=== PATIENT | female | born 1995 | race Two or more races ===

== ENCOUNTER 2021-10-28 04:57 | Emergency (ER) | payer OTHER, SELFPAY ==
[2021-10-28 05:09] VITALS: BP 156/100; PULSE 100; RESP 16; TEMP 36.6; O2SAT 97; BMI 43.9
[2021-10-28 05:15] VITALS: O2SAT 96
[2021-10-28 05:16] VITALS: BP 141/91; PULSE 108; RESP 18; TEMP 36.9; O2SAT 97
[2021-10-28 05:30] LABS: COVID-19 Test Negative (Negative)
--- NOTE | 2021-10-28 05:53 | ED.URI ---
HPI - URI/Sore Throat General Chief Complaint: Upper Respiratory Symptoms Stated Complaint: sore throat, congestion, ear pain Time Seen by Provider: 10/28/21 05:35 History of Present Illness HPI Narrative: Patient is a 26-year-old female presents today with having 2 day history of sore throat congestion upper respiratory symptoms mild coughing. Patient from home. Vaccinated for COVID x2. Did not have the booster. No nausea no vomiting no systemic complaints. Patient denies any travel history. Does not think she is . No neck pain. Related Data Previous Rx's Medication Instructions Recorded azithromycin 250 mg tablet See Rx Instructions PO .COMPLEX 10/28/21 upper resp infection #6 tabs cetirizine 10 mg tablet (Zyrtec) 10 mg PO DAILY #7 tabs 10/28/21 Allergies Allergy/AdvReac Type Severity Reaction Status Date / Time No Known Allergies Allergy Verified 10/28/21 05:35 Review of Systems Review of Systems: Positive congestion positive sore throat positive generalized malaise Yes all other systems are reviewed and are negative [facility] Past Medical History Attestation statement: The following information was validated with the patient. Social History Social History Advance Directives: No Advance Directives Information Provided: No Physical Exam Vital Signs: Vital Signs: Last Vital Signs Temp 98.5 F 10/28/21 05:16 Pulse 108 H 10/28/21 05:16 Resp 18 10/28/21 05:16 BP 141/91 H 10/28/21 05:16 Pulse Ox 97 10/28/21 05:16 O2 Del Method 10/28/21 05:16 BMI result Body Mass Index 43.9 Appearance: Alert. Oriented X3. No acute distress. Eyes: Pupils equal, round and reactive to light. ENT: Pharynx normal. Neck: Normal inspection. Neck supple. No lymph nodes noted. No crepitus CVS: Normal heart rate and rhythm. Pulses normal. Normal S1 and S2 Respiratory: No respiratory distress. Breath sounds normal. No Wheezing. No rales Abdomen: Soft and nontender. No rigidity. No distention. good BS x4 Skin: Skin warm and dry. Normal skin color. Normal skin turgor. Extremities: No lower extremity edema. Neurovascular intact to all extremities. No Lacerations. No Rash Neuro: Oriented X 3. No motor deficit. No sensory deficit. Moving all extermities. No slurred speech MDM - URI/Sore Throat MDM Narrative Medical decision making narrative: COVID test is negative. Will get strep test. More likely patient had upper respiratory viral syndrome. Currently in stable condition O2 sat is 97 on room air. in no distress. Patient's strep was negative. Will start patient on a Z-David and Zyrtec. Follow-up on an outpatient basis. Medical Records Attestation: I reviewed the patient's medical records. Lab Data Attestation: I reviewed the patient's lab results. Labs: Lab Results 10/28/21 10/28/21 Range/Units 05:07 05:48 COVID-19 ([place]) Negative (Negative) COVID-19 Clin Com See Note S. pyogenes GrpA MARIO Negative (Negative) Discharge Plan Discharge Clinical Impression: Upper respiratory infection Patient Disposition: Home, Self-Care Instructions: Upper Respiratory Infection (ED) Prescriptions: New azithromycin 250 mg tablet See Rx Instructions .ROUTE .COMPLEX Qty: 6 0RF Rx Instructions: take 500 mg today (day 1), then 250 mg for 4 days (days 2-5) cetirizine [Zyrtec] 10 mg tablet 10 mg PO DAILY Qty: 7 0RF Referrals: Physician,None [Primary Care Provider] -
[2021-10-28 06:02] LABS: Strep A Nucleic Acid Negative (Negative)
== END 2021-10-28 06:42 | disposition home or self-care (01) ==
PROVIDERS: Emergency Provider Emergency Medicine Emergency Medical Services
DX: J06.9 Acute upper respiratory infection, unspecified (principal); Z20.822 Contact with and (suspected) exposure to COVID-19; J02.9 Acute pharyngitis, unspecified
CPT/HCPCS: 36415; 87635; 87651; 99283; 99284

== ENCOUNTER 2022-01-12 03:31 | Emergency (ER) | payer OTHER, SELFPAY ==
--- NOTE | ~2022-01-12 | CT_ITS ---
EXAMINATION: CT ANGIOGRAM OF THE CHEST WITH AND WITHOUT CONTRAST (CT PULMONARY ANGIOGRAM FOR PE) CLINICAL INFORMATION: Reason for Exam chest tightness, on oral control, recent tra COMPARISON: Chest radiograph from today TECHNIQUE: Prior to contrast administration, noncontrast localization images were obtained. Subsequently, multidetector volumetric imaging was performed from the thoracic inlet to below the diaphragms following the administration of 75 mL Omnipaque 350 intravenous contrast. No contrast reaction reported Sagittal, coronal, and MIP oblique sagittal reformatted images were obtained on the CT workstation, uploaded to PACS, and reviewed. This CT examination was performed using dose optimization techniques as appropriate, variously including the following: *Automated exposure control *Adjustment of mA and/or kV according to patient size (this includes techniques or standardized protocols for targeted exams where dose is matched to indication/reason for exam; i.e. extremities or head) *Use of iterative reconstruction technique Total exam dose-length product 490 mGy-cm FINDINGS: QUALITY OF STUDY/CONTRAST BOLUS: Satisfactory. PULMONARY ARTERIES: No central or segmental pulmonary emboli. THORACIC AORTA: No aneurysm or dissection. 2 vessel branching configuration of the arch. LUNG: No focal consolidation, nodules or masses. The central airways are patent. PLEURA: No pleural effusion or pneumothorax. MEDIASTINUM: Normal heart size. No pericardial effusion. No hilar or mediastinal lymphadenopathy. Residual thymic tissue noted. No evidence of septal bowing or right heart strain. CHEST WALL/AXILLA: No axillary or internal mammary lymphadenopathy. OSSEOUS STRUCTURES: No acute or suspicious osseous abnormality. UPPER ABDOMEN: Unremarkable. No reflux of contrast into the hepatic veins to suggest elevated right heart pressures. CT/CT angio chest PE protocol IMPRESSION: No pulmonary embolism or other acute intrathoracic abnormality. VTE: negative.
--- NOTE | ~2022-01-12 | XR_ITS ---
EXAMINATION: XR CHEST CLINICAL INFORMATION: Chest tightness/palpitations COMPARISON: None TECHNIQUE: 2 views of the chest were obtained. FINDINGS: The lungs are well expanded. There is no focal consolidation, edema, or effusion. No pneumothorax. The cardiomediastinal silhouette is within normal limits. No acute osseous abnormality. XR/XR chest 2V IMPRESSION: Clear lungs.
[2022-01-12 04:09] LABS: Hematocrit 39.8 % (37.0-47.0); Hemoglobin 13.5 g/dl (12.0-16.0); Mean Corpuscular HGB Conc 33.9 g/dl (31.0-35.0); Mean Corpuscular Volume 85.6 fL (80.0-98.0); Platelet Count 316 X10*3/uL (160-400); Red Blood Count 4.65 X10*6/uL (4.20-5.50); Red Cell Distribution Width 12.5 % (11.0-16.0); White Blood Count 11.6 X10*3/uL (4.8-10.8)
[2022-01-12 04:16] VITALS: BP 157/103; PULSE 122; RESP 19; TEMP 36.8; O2SAT 99; BMI 43.9
[2022-01-12 04:34] LABS: Alanine Aminotransferase 15 U/L (0-31); Albumin Level 4.1 g/dL (3.5-5.0); Alkaline Phosphatase 77 U/L (39-117); Anion Gap 17 (12-20); Aspartate Amino Transferase 19 U/L (5-31); Bilirubin Direct 0.2 mg/dL (0.0-0.5); Bilirubin Total 0.5 mg/dL (0.0-1.0); Blood Urea Nitrogen 14 mg/dL (9-16); Carbon Dioxide 19 mmol/L (22-29); Chloride 103 mmol/L (96-108); Estimated Glomerular Filt Rate > 60; Glucose Random 84 mg/dL (60-115); Lipase 25 U/L (8-78); Potassium 3.7 mmol/L (3.3-5.1); Sodium 135 mmol/L (135-145); Total Protein 7.9 g/dL (6.5-8.0)
--- NOTE | 2022-01-12 08:03 | ECG_ITS ---
Test Reason : chest discomfort/ cp Blood Pressure : / mmHG Vent. Rate : 108 BPM Atrial Rate : 108 BPM P-R Int : 132 ms QRS Dur : 082 ms QT Int : 338 ms P-R-T Axes : 072 078 039 degrees QTc Int : 452 ms Sinus tachycardia Otherwise normal ECG When compared with ECG of 12-JAN-2022 03:49, No significant change was found Referred By: Generic ED Physician Electronically Signed By:STACEY VANN MD
--- NOTE | 2022-01-12 09:34 | ED.CHESTPAIN ---
HPI - Chest Pain General Chief Complaint: Chest Pain Stated Complaint: Abd pain/Hip pain Time Seen by Provider: 01/12/22 09:14 Source: patient Mode of arrival: ambulatory Limitations: no limitations History of Present Illness HPI narrative: 26-year-old female with no significant past medical history put is currently on the control [facility] who recently traveled to [place] 2 weeks ago presenting to the ER with complaints of chest tightness with feeling like her heart is racing for the past 2 days that has been intermittent. She reports that the pain is not relieved with anything. She reports nothing exacerbates the pain. She denies any fevers, chills, dizziness, headaches, change in vision, jaw pain, paresthesias, dyspnea on exertion, orthopnea, cough, shortness of breath, nausea/vomiting, abdominal pain, back pain, dysuria, hematuria, abnormal vaginal discharge, lower extremity edema or calf tenderness, sick contacts, hypercoagulation disorder that she is aware of, recent surgery or any other symptoms complaints or concerns at this time. MD complaint: chest discomfort Onset (ago): day(s) (2) Timing of current episode: episodic Prior episodes: No Onset: during rest Pain location: substernal Pain radiation: none Severity: mild Quality: tightness Relieving factors: nothing Exacerbating factors: nothing Context: recent travel and other (On oral control) Treatment prior to arrival: none Risk Factors Coronary artery disease risk factors: none Thoracic aortic dissection risk factors: none Related Data Previous Rx's Medication Instructions Recorded azithromycin 250 mg tablet See Rx Instructions PO .COMPLEX 10/28/21 upper resp infection #6 tabs cetirizine 10 mg tablet (Zyrtec) 10 mg PO DAILY #7 tabs 10/28/21 hydroxyzine HCl 50 mg tablet 50 mg PO Q8H PRN anxiety #14 tabs 01/12/22 Allergies Allergy/AdvReac Type Severity Reaction Status Date / Time No Known Allergies Allergy Verified 10/28/21 05:35 Review of Systems Review of Systems: Constitutional : No Weight loss, No Fever, No Chills, No Night Sweats, No Fatigue, No Malaise ENT/Mouth : No Hearing loss, No Ear Pain, No Nasal Congestion, No Sinus Pain, No Hoarseness, No sore throat, No Rhinorrhea, No Swallowing Difficulty Eyes: No Eye Pain, No Swelling, No Redness, No Foreign Body, No Discharge, No Vision Changes Cardiovascular : + Chest Pain, + palpitations, No SOB, No Dyspnea on Exertion, No Orthopnea, No Edema Respiratory : No Cough, No Sputum, No Wheezing, No Smoke Exposure, No Dyspnea Gastrointestinal : No Nausea, No Vomiting, No Diarrhea, No Constipation, No abdominal Pain, No Hematochezia, No Melena Genitourinary : no irregular bleeding, No Dysuria, No Urinary Frequency, No Hematuria, No Urinary Incontinence, No Urgency, No Flank Pain, No Urinary Flow Changes, No Hesitancy Musculoskeletal : No joint pain, No Myalgias, No Joint Swelling Skin : No Skin Lesions, No rash Neuro : No Weakness, No Numbness, No Paresthesias, No Loss of Consciousness, No Dizziness, No Headache Psych : No Anxiety/Panic, No Depression, No SI/HI/AH/VH, No Social Issues, Heme/Lymph: No Bruising, No Bleeding,No Lymphadenopathy Endocrine : No Polyuria, No Polydipsia, No Temperature Intolerance Yes all other systems are reviewed and are negative [facility] Past Medical History Attestation statement: The following information was validated with the patient. Source: old records reviewed and nursing notes reviewed Social History Social History Advance Directives: No Physical Exam Vital Signs: Vital Signs: Last Vital Signs Temp 98.7 F 01/12/22 10:41 Pulse 124 H 01/12/22 10:41 Resp 16 01/12/22 10:41 BP 134/95 H 01/12/22 10:41 Pulse Ox 99 01/12/22 10:41 O2 Del Method 01/12/22 10:41 BMI result Body Mass Index 43.9 vital signs have been reviewed as normal and appeared to be correct. Blood pressure 157/103. Heart rate 122. Respiration rate normal. Temperature normal. Oxygen saturation normal. Appearance: Alert. Oriented X3. No acute distress. Head: Normal external exam. Normocephalic. Atraumatic. Eyes: PERRLA. EOMI. Conjunctiva and sclera normal. Eyelids normal. ENT: Pharynx normal. Uvula midline. Moist mucous membranes. No lesions/ulcerations or masses noted on the tongue. Normal voice. No trismus noted. No drooling noted. No muffled voice noted. Neck: Normal inspection. Neck supple. FROM. No adenopathy. Thyroid Normal. No tracheal deviation noted. No crepitus is noted. No meningeal signs. No neck mass noted. No signs of trauma noted. CVS: Tachycardic otherwise normal rhythm. Heart sound normal. Pulses normal throughout. No murmurs/rales/gallops. Respiratory: No respiratory distress. Painless inspiration. Breath sounds normal. No wheezes/rales/rhonchi noted. Chest nontender. No crepitus is noted. No accessory muscle usage noted or decreased air movement noted. No signs of trauma. Abdomen: Soft and nontender. Nondistended. No guarding. No rigidity. No distention noted. Back: Full range of motion noted. Skin: Skin warm and dry. Normal skin color. Normal skin turgor. No rashes/lesions/lacerations noted. Extremities: No lower extremity edema. No calf tenderness is noted. Extremities exhibit normal range of motion and nontender. Neuro: Oriented X 3. No motor deficit. No sensory deficit. Reflexes normal. Normal steady gait. No focal neuro deficits noted. CN's II-XII intact bilaterally? Vascular: + radial pulses/+ 2 distal pedal pulses/+2 dorsalis pedis b/l. Normal cap refill. No cyanosis noted to upper extremity nails and lower extremity toes nails. Course Course Course Narrative: 9:40am - 26-year-old female with no significant past medical history put is currently on the control [facility] who recently traveled to [place] 2 weeks ago presenting to the ER with complaints of chest tightness with feeling like her heart is racing for the past 2 days that has been intermittent. Patient had labs in the waiting room and [place] [id number]. Carbon dioxide 19. Otherwise all other labs are within normal limits. EKG is sinus tachycardia with ventricular rate of 106 with a normal IN interval normal QRS duration normal QT/QTC interval. No acute ischemic change are noted. No prior EKGs to compare to at this time. Patient had 2 EKGs today that appears the same. Plan: Therefore at this time will add a troponin, TSH level with reflex T4, beta quant, chest x-ray, add a PT INR/D-dimer and re-evaluate. Reevaluation(s) Reevaluation #1: - D-dimer less than 150. Troponin less than 3. TSH level 4.25 although free T4 reflux 1.10 which is normal. - therefore I discussed this case with Dr. Harris and he recommended obtaining a CT of her chest for PE due to her risk factors despite having a negative D-dimer. Time: 13:34 Reevaluation #2: - CTA of chest for PE negative for any acute processes. Patient most likely atypical chest pain/anxiety. Will DC home with instructions to monitor her blood pressure due to it was elevated here and to follow-up with her primary care provider and she does not have a primary care provider then I gave her a few numbers that she can call to establish a primary care provider. along instructions return if any new or worsening symptoms. Patient understands agrees with this plan. Time: 13:45 [facility] - Chest Pain Medical Records Data Attestation: I reviewed the patient's medical records. Lab Data Attestation: I reviewed the patient's lab results. Result diagrams: 01/12/22 04:02 01/12/22 04:02 Labs: Lab Results 01/12/22 01/12/22 01/12/22 Range/Units 04:02 04:02 04:02 WBC 11.6 H (4.8-10.8) X10*3/uL RBC 4.65 (4.20-5.50) X10*6/uL Hgb 13.5 (12.0-16.0) g/dl Hct 39.8 (37.0-47.0) % MCV 85.6 (80.0-98.0) fL MCH 29.0 (27.0-33.0) pg MCHC 33.9 (31.0-35.0) g/dl RDW 12.5 (11.0-16.0) % Plt Count 316 (160-400) X10*3/uL MPV 11.0 (9.4-12.3) fL Absolute Nucleated RBC 0.000 (0.0-0.012) X10*3/uL Nucleated RBC % (auto) 0.0 (0.0-0.2) /100WBC PT (10.0-13.1) SEC INR (0.9-1.1) D-Dimer High Sensitivty NG/ML Sodium 135 (135-145) mmol/L Potassium 3.7 (3.3-5.1) mmol/L Chloride 103 (96-108) mmol/L Carbon Dioxide 19 L (22-29) mmol/L Anion Gap 17 (12-20) BUN 14 (9-16) mg/dL Creatinine 0.63 (0.5-1.4) mg/dL Estim Creat Clear Calc 160.0 Estimated GFR > 60 Random Glucose 84 (60-115) mg/dL Calcium 9.0 (8.4-10.2) mg/dL Total Bilirubin 0.5 (0.0-1.0) mg/dL Direct Bilirubin 0.2 (0.0-0.5) mg/dL AST 19 (5-31) U/L ALT 15 (0-31) U/L Alkaline Phosphatase 77 (39-117) U/L Troponin I High Sens < 3.5 (<3.5-17.0) ng/L Total Protein 7.9 (6.5-8.0) g/dL Albumin 4.1 (3.5-5.0) g/dL Lipase 25 (8-78) U/L TSH 4.25 H (0.32-4.0) uIU/mL Free T4 1.10 (0.71-1.85) ng/dL Beta HCG, Quant < 2 mIU/mL 01/12/22 Range/Units 10:15 WBC (4.8-10.8) X10*3/uL RBC (4.20-5.50) X10*6/uL Hgb (12.0-16.0) g/dl Hct (37.0-47.0) % MCV (80.0-98.0) fL MCH (27.0-33.0) pg MCHC (31.0-35.0) g/dl RDW (11.0-16.0) % Plt Count (160-400) X10*3/uL MPV (9.4-12.3) fL Absolute Nucleated RBC (0.0-0.012) X10*3/uL Nucleated RBC % (auto) (0.0-0.2) /100WBC PT 12.0 (10.0-13.1) SEC INR 1.0 (0.9-1.1) D-Dimer High Sensitivty < 150 NG/ML Sodium (135-145) mmol/L Potassium (3.3-5.1) mmol/L Chloride (96-108) mmol/L Carbon Dioxide (22-29) mmol/L Anion Gap (12-20) BUN (9-16) mg/dL Creatinine (0.5-1.4) mg/dL Estim Creat Clear Calc Estimated GFR Random Glucose (60-115) mg/dL Calcium (8.4-10.2) mg/dL Total Bilirubin (0.0-1.0) mg/dL Direct Bilirubin (0.0-0.5) mg/dL AST (5-31) U/L ALT (0-31) U/L Alkaline Phosphatase (39-117) U/L Troponin I High Sens (<3.5-17.0) ng/L Total Protein (6.5-8.0) g/dL Albumin (3.5-5.0) g/dL Lipase (8-78) U/L TSH (0.32-4.0) uIU/mL Free T4 (0.71-1.85) ng/dL Beta HCG, Quant mIU/mL Imaging Data CTA of chest for PE : Attestation: I personally reviewed and interpreted this imaging study as follows: Radiologist's impression: FINDINGS: QUALITY OF STUDY/CONTRAST BOLUS: Satisfactory. PULMONARY ARTERIES: No central or segmental pulmonary emboli.? THORACIC AORTA: No aneurysm or dissection. 2 vessel branching configuration of the arch. LUNG: No focal consolidation, nodules or masses. The central airways are patent. PLEURA: No pleural effusion or pneumothorax. MEDIASTINUM: Normal heart size.? No pericardial effusion.? No hilar or mediastinal lymphadenopathy. Residual thymic tissue noted. No evidence of septal bowing or right heart strain. CHEST WALL/AXILLA: No axillary or internal mammary lymphadenopathy. OSSEOUS STRUCTURES: No acute or suspicious osseous abnormality.? UPPER ABDOMEN: Unremarkable.? No reflux of contrast into the hepatic veins to suggest elevated right heart pressures. CT/CT angio chest PE protocol IMPRESSION: No pulmonary embolism or other acute intrathoracic abnormality. ? VTE: negative. ECG Data ECG #1: Attestation: I personally reviewed and interpreted this ECG as follows: ECG interpretation date: 01/12/22 ECG interpretation time: 03:49 Interpretation: EKG is sinus tachycardia with ventricular rate of 106 with a normal IN interval normal QRS duration normal QT/QTC interval. No acute ischemic change are noted. No prior EKGs to compare to at this time. Patient had 2 EKGs today that appears the same. Critical Care Time Critical Care Time Critical Care Time: Yes Total Critical Care Time: 60 Attestation: I personally attest to this time spent taking care of the patient Discharge Plan Discharge Clinical Impression: Elevated blood pressure reading, Atypical chest pain, Sinus tachycardia Patient Disposition: Home, Self-Care Instructions: Heart Healthy Diet (ED), How to Take a Blood Pressure (ED), Tachycardia (ED), Noncardiac Chest Pain (ED) Additional Instructions: Your noted to have an elevated blood pressure today. This could be related to anxiety or pain. Therefore I am recommending that you right your blood pressure on a piece of paper in the morning for the next 2 weeks on Monday/Monday and Fridays. Then make an appointment with a primary care provider in bring them your blood pressure readings that you have for 2 weeks for the 3 days that I mention. And they can determine if you have an elevated blood pressure and determine if you will need to be started on blood pressure medication. Although we cannot diagnose he with high blood pressure with 1-2 readings in the emergency department because there could be multiple factors elevating your blood pressure which include pain/anxiety. Prescriptions: New hydroxyzine HCl 50 mg tablet 50 mg PO Q8H PRN (Reason: anxiety) Qty: 14 0RF No Action azithromycin 250 mg tablet See Rx Instructions .ROUTE .COMPLEX Qty: 6 0RF Rx Instructions: take 500 mg today (day 1), then 250 mg for 4 days (days 2-5) cetirizine [Zyrtec] 10 mg tablet 10 mg PO DAILY Qty: 7 0RF Referrals: [facility] [Provider Group] [facility] [Provider Group] [facility] [Provider Group[facility] [Provider Group] [facility] [Provider Group] Stand Alone Forms: Work/School Release
[2022-01-12 09:45] LABS: HCG Quantitative < 2 mIU/mL
[2022-01-12 09:50] LABS: Troponin-I High Sensitivity < 3.5 ng/L (<3.5-17.0)
[2022-01-12 10:29] LABS: Thyroid Stimulating Hormone 4.25 uIU/mL (0.32-4.0)
[2022-01-12 10:32] LABS: D Dimer High Sensitivity < 150 NG/ML
[2022-01-12 10:41] VITALS: BP 134/95; PULSE 124; RESP 16; TEMP 37.1; O2SAT 99
[2022-01-12] MEDS: iohexoL 350 MG/ML 100 ML INFUS..BTL IV (13:05)
--- NOTE | 2022-01-13 08:23 | ECG_ITS ---
Test Reason : ABDOMINAL PAIN Blood Pressure : / mmHG Vent. Rate : 106 BPM Atrial Rate : 106 BPM P-R Int : 132 ms QRS Dur : 084 ms QT Int : 346 ms P-R-T Axes : 058 075 037 degrees QTc Int : 459 ms Sinus tachycardia Otherwise normal ECG No previous ECGs available Referred By: Josh Fuentes Electronically Signed By:STACEY VANN MD
== END 2022-01-12 14:01 | disposition home or self-care (01) ==
PROVIDERS: Physician Assistant Medical; Emergency Provider Emergency Medicine Emergency Medical Services
DX: R07.89 Other chest pain (principal); R03.0 Elevated blood-pressure reading, without diagnosis of hypertension; R00.0 Tachycardia, unspecified
CPT/HCPCS: 36415; 71046; 71275; 80053; 82248; 83690; 84439; 84443; 84484; 84702; 85027; 85379; 85610; 93005; 99284; Q9967